=== PATIENT | male | born 1955 | race African-American/Black ===

== ENCOUNTER 2017-07-26 13:40 | Outpatient (CLI) | payer OTHER ==
[~2017-07-26 13:40] MED LIST: GADOBUTROL 10 MMOL/10 ML VIAL ONE; GADOBUTROL 15 MMOL/15 ML VIAL ONE
[2017-07-26] MEDS ORDERED: GADOBUTROL 10 MMOL/10 ML VIAL IVP ONE (14:48)
--- NOTE | 2017-07-28 00:09 | MRI Report ---
EXAM: MR ABDOMEN WITH AND WITHOUT CONTRAST (MR KIDNEYS) EXAM DATE: 07/26/2017 02:58 PM. CLINICAL HISTORY: Kidney cysts. COMPARISON: Noncontrast CT abdomen/pelvis 08/13/2015. Contrast-enhanced CT abdomen/pelvis 10/25/2005. TECHNIQUE: Multiplanar breath-hold T1, T2, and DWI sequences obtained through the kidneys and abdomen on an MR scanner. Images obtained before and after administration of 8.5 mL Gadavist intravenous con trast. Multiphase sequences obtained through the kidneys. FINDINGS: Respiratory motion limits several series, particularly the postcontrast images. The precontrast T2 an d out of phase images excluded portions of the upper pole cortices. Lung Bases: Clear as visualized. Liver: Normal size, morphology, and signal. Gallbladder: Unremarkable. No visualized stones or biliary ductal dilatation. Pancreas: Normal. Spleen: Normal. Kidneys: Right Kidney: The right kidney measures 10.9 cm in length. - Complex cystic lesion in the medial upper pole with enhancing septations and wall thickening measur ing 2.2 cm (401/21, 1301/54). No corresponding lesion seen on prior exams. - Complex cystic lesion in the lower pole measuring 1.5 cm with a tiny enhancing mural nodule (401/26 , 1401/65). Corresponds to incompletely characterized 0.8 cm lesion on 2016 CT. - Multiple simple appearing T2 hyperintense cysts, the largest in the lateral upper pole/interpolar c ortex measuring 5.1 cm (401/22), previously 4.[address] Left Kidney: The left kidney measures 10.8 cm in length. - Two nonenhancing T1 hyperintense/T2 hypointense lesions, compatible with hemorrhagic cysts, measuri ng 2.6 cm in the posterior interpolar cortex (1001/37), previously 2.2 cm in 2016, and 1.3 cm in the lateral interpolar cortex (1001/41), new since 2016. - Multiple small simple appearing T2 hyperintense cysts, the largest 1.1 cm in the lower pole. 401/21 ). Adrenal Glands: Normal. Pertinent/GI tract: The stomach and visualized small bowel and colon are unremarkable, without eviden ce of obstruction or acute inflammatory process. No free fluid or adenopathy. Retroperitoneum: Normal. Other: Normal. IMPRESSION: 1. Respiratory motion somewhat degrades the exam, particularly the postcontrast images. 2.Two complex right renal cystic lesions, a 2.2 cm lesion with enhancing septations and wall thickeni ng in the upper pole and a 1.5 cm lesion in the lower pole with a tiny enhancing mural nodule, both B osniak Category 3. The upper pole lesion is not seen on prior exams. The lower pole lesion has increa sed in size compared to 2016 CT. 3. Additional simple cortical cysts bilaterally and two hemorrhagic left renal cysts, increased in nu mber and size compared to prior exams. [facility] Referring Provider Line: [phone] SITE ID: [id number]
== END 2017-07-26 13:41 | disposition home or self-care (01) ==
LOC: DI 13:40
PROVIDERS: ATTEND Internal Medicine
DX: Q61.9 Cystic kidney disease, unspecified (principal); N28.1 Cyst of kidney, acquired
CPT/HCPCS: 74183; A9585

== ENCOUNTER 2023-03-14 08:00 | Outpatient (CLI) | payer OTHER, MEDICARE | END 2023-03-14 23:59 | disposition home or self-care (01) | LOC: LAB.N 08:00 | PROVIDERS: ATTEND Family Medicine | DX: N41.9 Inflammatory disease of prostate, unspecified (principal) | CPT/HCPCS: 87086; 87181 ==

== ENCOUNTER 2023-04-02 15:30 | Outpatient (CLI) | payer MEDICARE, OTHER | END 2023-04-02 15:31 | disposition home or self-care (01) | LOC: LAB.N 15:30 | PROVIDERS: ATTEND Family Medicine | DX: Z12.5 Encounter for screening for malignant neoplasm of prostate (principal) | CPT/HCPCS: 36415; G0103; 84153 ==

== ENCOUNTER 2023-05-01 12:50 | Outpatient (CLI) | payer MEDICARE, OTHER ==
[2023-05-01 18:01] LABS: CALCIUM 9.9 mg/dL (8.5-10.3); CREATININE 0.9 mg/dL (0.6-1.3); POTASSIUM 3.9 mmol/L (3.5-4.5)
== END 2023-05-01 12:51 | disposition home or self-care (01) ==
LOC: LAB.N 12:50
PROVIDERS: ATTEND Urology
DX: R97.20 Elevated prostate specific antigen [PSA] (principal); N28.1 Cyst of kidney, acquired
CPT/HCPCS: 36415; 80048; 84153

== ENCOUNTER 2023-05-27 12:21 | Outpatient (CLI) | payer MEDICARE, OTHER | END 2023-05-27 12:22 | disposition home or self-care (01) | LOC: LAB.N 12:21 | PROVIDERS: ATTEND Urology | DX: R97.20 Elevated prostate specific antigen [PSA] (principal) | CPT/HCPCS: 36415; 84153 ==

== ENCOUNTER 2023-09-20 12:00 | Outpatient (CLI) | payer MEDICARE, OTHER ==
[2023-09-20 17:52] LABS: BASOPHILS # (AUTO) 0.1 10^3/uL (0.0-0.1); EOSINOPHILS # (AUTO) 0.1 10^3/uL (0.0-0.7); EOSINOPHILS % (AUTO) 2.9 %; HCT - HEMATOCRIT 40.6 % (42.0-52.0); HGB - HEMOGLOBIN 12.5 g/dL (14.0-18.0); LYMPHOCYTES # (AUTO) 1.5 10^3/uL (1.5-3.5); LYMPHOCYTES % (AUTO) 31.4 %; MEAN CORPUSCULAR HEMOGLOBIN 30.8 pg (27.0-31.0); MEAN CORPUSCULAR HGB CONC 30.8 g/dL (32.0-36.0); MONOCYTES # (AUTO) 0.3 10^3/uL (0.0-1.0); MONOCYTES % (AUTO) 6.8 %; NEUTROPHILS # (AUTO) 2.8 10^3/uL (1.5-6.6); NEUTROPHILS % (AUTO) 57.7 %; PLT - PLATELET COUNT 181 10^3/uL (130-450); RED BLOOD COUNT 4.06 10^6/uL (4.70-6.10); WHITE BLOOD COUNT 4.8 x10^3/uL (4.8-10.8)
[2023-09-20 18:58] LABS: ALBUMIN 4.3 g/dL (3.2-5.5); ALBUMIN/GLOBULIN RATIO 1.7 (1.0-2.2); CALCIUM 10.2 mg/dL (8.5-10.3); CREATININE 1.1 mg/dL (0.6-1.3); POTASSIUM 4.3 mmol/L (3.5-4.5); TOTAL PROTEIN 6.8 g/dL (6.4-8.9)
== END 2023-09-20 12:15 | disposition home or self-care (01) ==
LOC: LAB.N 12:00
PROVIDERS: ATTEND Family Medicine
DX: M54.50 Low back pain, unspecified (principal)
CPT/HCPCS: 36415; 80053; 85025

== ENCOUNTER 2023-09-20 14:39 | Outpatient (CLI) | payer MEDICARE, OTHER ==
--- NOTE | 2023-09-20 15:40 | XRAY Report ---
PROCEDURE: Lumbar Spine 2-3V INDICATIONS: BACK PAIN TECHNIQUE: 3 views of the lumbar spine were acquired. COMPARISON: CT abdomen and pelvis dated August 13, 2015. FINDINGS: Surgical change: None. Bones: 5 [id number] vertebrae are present. Slight dextroconvex curvature of the lumbar spine ce ntered at L3. No vertebral body compression fractures. Severe degenerative changes at L5-S1 with oste ophytosis, disc height loss and facet arthropathy with associated moderate to severe osseous neural f oraminal narrowing. Remainder of the spine demonstrates mild multilevel disc height loss with facet a rthropathy and mild osseous neural foraminal narrowing at L3-L4 and L4-L5. No suspicious bony lesion s. Soft tissues: Overlying bowel gas pattern is normal. No suspicious soft tissue calcifications. Kalyan cification of the abdominal aorta. IMPRESSION: 1.No acute osseous abnormality. 2.Multilevel degenerative changes of the spine, severe at L5-S1 where there is osseous neural foramin al narrowing, progressed compared to prior dated August 13, 2015. If clinical symptoms persist, conside r an MRI for further evaluation. Reviewed by: Jacqueline Alfaro MD on 09/20/2023 3:39 PM PDT Approved by: Jacqueline Alfaro MD on 09/20/2023 3:39 PM PDT Station ID: [id number]
== END 2023-09-20 14:40 | disposition home or self-care (01) ==
LOC: DI 14:39
PROVIDERS: ATTEND Family Medicine
DX: M47.816 Spondylosis without myelopathy or radiculopathy, lumbar region (principal); M47.817 Spondylosis without myelopathy or radiculopathy, lumbosacral region
CPT/HCPCS: 36415; 80053; 85025

== ENCOUNTER 2023-09-27 07:58 | Outpatient (CLI) | payer MEDICARE, OTHER ==
--- NOTE | 2023-09-27 16:34 | CT Report ---
PROCEDURE: Abdomen/Pelvis WO INDICATIONS: R FLANK PAIN TECHNIQUE: A CT scan of the abdomen and pelvis was performed without the use of intravenous contrast. Images we re recorded and evaluated at appropriate window settings. Reformats: coronal and sagittal. For radiat ion dose reduction, the following was used: automated exposure control, adjustment of mA and/or kV ac cording to patient size. COMPARISON: CT abdomen and pelvis on August 13, 2015. FINDINGS: Image quality: Diagnostic. Evaluation of the visceral organs is limited due to the lack of intravenou s contrast. Lower chest: Dependent atelectasis. Liver: No contour-deforming mass. Gallbladder: Biliary tree: No intrahepatic or extrahepatic dilation, accounting for age. Spleen: No splenomegaly. Pancreas: No pancreatic ductal dilation. Adrenals: No adrenal nodule. Kidneys and ureters: No hydronephrosis. Bilateral simple renal cysts, the largest right upper pole me asures 6.2 x 5.4 cm. Interval increase in size of left interpolar hyperdense lesion measuring 3.7 x 3 .4 cm with Hounsfield unit of 80, previously 2.1 x 2 cm (59). A few additional hyperdense lesions i n the left kidney for example 1.5 cm with Hounsfield unit of 64 (2/34). Left interpolar nonobstructiv e nephrolith/sediment measuring 1.2 cm (249, ). Stomach, bowel and peritoneum: No gastric or small bowel dilation. No abnormal wall thickening. No pa thologic free fluid. Appendix is not well seen; however, no acute inflammatory signs in the right low er quadrant Above-average colonic stool burden, notably in the cecum and ascending colon. Lymph nodes: No central or retroperitoneal adenopathy. Vessels: No infrarenal aortic aneurysm. Mild calcification of the infrarenal abdominal aorta and huey c vasculature. Reproductive organs: Moderate prostatomegaly. Bladder: Bladder wall thickness is mildly thickened, accounting for underdistention. No calcified terence dder stones. Pelvic lymph nodes: No adenopathy by size criteria. A few prominent, but not enlarged, bilateral ingu inal lymph nodes which are likely reactive. Bones: No aggressive osseous abnormality. No acute fractures. Multilevel degenerative changes of the spine notably at L5-S1. Other: No significant ventral or inguinal hernia. IMPRESSION: 1.No hydronephrosis or obstructing renal stone bilaterally. 2.Left interpolar nonobstructive nephrolith/sediment measuring 1.2 cm. 3.A few hyperdense lesions in the left kidney, one of which has increased in size compared to prior C T dated August 13, 2015 measuring 3.7 x 3.4 cm, previously 2.1 x 2 cm with Hounsfield unit of 80 sugges tive of a proteinaceous cyst. Given interval increase in size recommend a renal ultrasound for furthe r characterization. 4.Nonobstructive bowel. Appendix is not well seen; however, no evidence of acute appendicitis. Above- average colonic stool burden notably in the cecum and ascending colon suggestive of constipation. Reviewed by: Jacqueline Alfaro MD on 09/27/2023 4:33 PM PDT Approved by: Jacqueline Alfaro MD on 09/27/2023 4:33 PM PDT Station ID: [id number]
== END 2023-09-27 07:59 | disposition home or self-care (01) ==
LOC: DI 07:58
PROVIDERS: ATTEND Family Medicine
DX: N20.0 Calculus of kidney (principal); N28.9 Disorder of kidney and ureter, unspecified; N40.0 Benign prostatic hyperplasia without lower urinary tract symptoms

== ENCOUNTER 2023-10-29 12:01 | Outpatient (CLI) | payer MEDICARE, OTHER ==
--- NOTE | 2023-10-29 17:14 | Ultrasound Report ---
PROCEDURE: Renal (Retroperitoneal) INDICATIONS: RENAL CYST TECHNIQUE: Real-time scanning was performed of the retroperitoneal organs, with image documentation. COMPARISON: CT abdomen and pelvis on September 27, 2023. FINDINGS: Kidneys: Kidneys are normal in size. Right kidney measures 12.3 cm long; left kidney measures 10.9 cm long. Right renal cortical thickness is 1.7 cm; left renal cortical thickness is 1.7 cm. Left low er pole solid mass within internal vascularity measuring 1.6 x 1.3 x 1.5 cm. Left upper pole heteroge neous ill-defined mass measuring 2.9 x 2.7 x 2.7 cm. Bilateral anechoic simple cysts measuring up to 5.6 cm on the right and 3.5 cm on the left. Left interpolar nonobstructive nephrolith/sediment, as se en on CT dated September 27, 2023. Bladder: Pre-void bladder volume is 159 mL. Post-void residual is 32 mL. Pre-void images demonstra te no intraluminal masses or stones. On pre-void images, ureteral jets are noted with color Doppler interrogation. (Of note, ureteral jets may not be detectable in up to 25% of cases due to insufficie nt differences in specific gravity between ureteral and bladder urine). Miscellaneous: No free abdominal fluid. Moderate prostatomegaly measuring 5 x 5.8 x 5 cm. IMPRESSION: 1.Left kidney demonstrates two solid masses corresponding to the lesions seen on CT dated September 26. Recommend a CT or MRI renal mass protocol for further characterization. 2.Moderate prostatomegaly. Post void residual is 32 mL. Reviewed by: Jacqueline Alfaro MD on 10/29/2023 5:13 PM PDT Approved by: Jacqueline Alfaro MD on 10/29/2023 5:13 PM PDT Station ID: [id number]
== END 2023-10-29 12:02 | disposition home or self-care (01) ==
LOC: DI 12:01
PROVIDERS: ATTEND Family Medicine
DX: N28.1 Cyst of kidney, acquired (principal); N28.89 Other specified disorders of kidney and ureter; N40.0 Benign prostatic hyperplasia without lower urinary tract symptoms